=== PATIENT | female | born 1950 | race Caucasian/White ===

== ENCOUNTER 2016-11-15 21:53 | Observation (INO) | payer MEDICARE, OTHER ==
[~2016-11-15] VITALS: Ht 175.3 cm; Wt 78.6 kg
[~2016-11-15 21:53] MED LIST: OXYC1TAB24 PO
[2016-11-15 21:58] VITALS: BP 103/53; PULSE 67; RESP 18; O2SAT 94
--- NOTE | 2016-11-15 22:15 | ED.REPORT ---
HPI-General Illness Date of Service Nov 15, 2016 ED Provider: Junito Vaca MD Pt is a 66 y/o female presenting to the ED w/ her c/o back pain onset about 5 days ago. She believes her back pain is associated with recent painting. She also reports associated low-grade fever, chills, diarrhea x2 onset today. Pt denies any trauma to the back. Pt denies cough, dysuria, abdominal pain, vomiting, bowel or bladder incontinence, hematochezia, orthostatic lightheadedness, CP, SOB. She has sick contacts with her grandchild who has been having gastroenteritis-like symptoms. She notes that she has hypomagnesemia secondary to her gastric bypass and she has ran out of her Mg pills for the past couple days. 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) Scheduled PRN oxyCODONE-Acetaminophen 5-325 mg (oxyCODONE-Acetaminophen 5-325 mg) 1 Each Tablet 0.5-1 TAB PO Q6H PRN PRN For Pain General Time Seen by MD: 22:14 Chief Complaint Back pain Hx Obtained From: Patient Arrived By: Walk-in Sudden in Onset?: No Onset Occurred: 1 week ago Symptom Duration: Since onset Location: : Back Quality: Painful Severity: Current: Mild Severity: Maximum: Mild Similar Sx Previous: No Past Medical History Past Medical History Celiac 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 Hypothyroidism Hypomagnesemia secondary to her gastric bypass - controlled Past Surgical History Hysterectomy Distal gastric bypass Back surgery Smoking History Never Smoker Social History Alcohol Use: Denies alcohol use Drug Use: Denies drug use Ambulatory Status Independent Review of Systems Full Review of Systems Constitutional: Reports: Chills, Fever Respiratory: Denies: Non-productive cough, Shortness of breath Cardiovascular: Denies: Chest pain GI: Reports: Diarrhea, Denies: Abdominal pain, Bloody/tarry stool, Hematochezia, Nausea, Vomiting Female: Denies: Dysuria Musculoskeletal: Reports: Back pain Neurologic: Denies: Bladder dysfunction, Bowel dysfunction, Weakness Complete sys rev & neg: except as marked. Physical Exam Vital Signs Vital Signs Date Time Temp Pulse Resp B/P Pulse Ox O2 Delivery O2 Flow Rate FiO2 2/19/17 23:32 109 15 90/54 93 Room Air 11/15/16 21:58 36.4 67 18 103/53 94 Room Air Initial VS: Reviewed, Vital signs normal Head / Eyes: Atraumatic, Normocephalic, PERRL ENT: Mucous membranes moist, Conjunctiva normal, No scleral icterus Neck: Supple, Full range of motion Respiratory: Breath sounds normal, Clear to auscultation, No respiratory distress Extremities: Vascular intact, Neuro intact, No swelling, No tenderness Skin: Warm, Dry, No cyanosis Neurologic: Alert, Oriented, Nonfocal Psychiatric: Mood/affect normal, Behavior normal, Normal thought content General/Constitutional: Awake, Alert, No acute distress Cardiovascular: Heart rate NL, Heart sounds NL, No gallop, No murmurs, No rubs , Cap refill not delayed, Peripheral circulation NL Heart Rate / Rhythm: Positive: Irreg irregular rhythm Abdomen: Atraumatic, Soft, Non-tender, No guarding, No rebound, BS normoactive , No distention, No palpable mass Back: Atraumatic, Full range of motion, Painless range of motion Mild lumbar tenderness Interpretation & Diagnostics Lab Results Interpretation Result Diagram: 11/15/16223411/15/162234 Test 11/15/16 22:35 White Blood Count 7.3th/mm3 (3.8-10.1) Red Blood Count 4.11mil/mm3 (3.90-5.20) Hemoglobin 12.5g/dL (12.0-15.6) Hematocrit 40.0% (35.0-46.0) Mean Corpuscular Volume 97.3fL (81-100) Mean Corpuscular Hemoglobin 30.4pg (27.0-35.0) Mean Corpuscular Hemoglobin Concent 31.3% (32.0-37.0) Red Cell Distribution Width 14.1% (12.3-15.4) Platelet Count 146bil/L (150-400) Neutrophils (%) (Auto) 93.5% (40-74) Lymphocytes (%) (Auto) 2.6% (14-46) Monocytes (%) (Auto) 3.2% (4-12) Eosinophils (%) (Auto) 0.3% (0-5) Basophils (%) (Auto) 0.1% (0-3) D-Dimer 1.0mg/L (<0.50) Sodium Level 136mEq/L (134-144) Potassium Level 3.6mEq/L (3.5-5.2) Chloride Level 102mEq/L (97-108) Carbon Dioxide Level 19mmol/L (18-29) Blood Urea Nitrogen 26mg/dL (8-27) Creatinine 0.64mg/dL (0.57-1.00) Estimat Glomerular Filtration Rate 133mL/min (>59) Glucose Level 137mg/dL (60-99) Lactic Acid Level 1.0mmol/L (0.4-2.0) Calcium Level 8.8mg/dL (8.5-10.1) Magnesium Level 1.7mg/dL (1.6-2.6) Total Bilirubin 1.2mg/dL (0.0-1.2) Aspartate Amino Transf (AST/SGOT) 23U/L (0-50) Alanine Aminotransferase (ALT/SGPT) 17U/L (0-32) Alkaline Phosphatase 88U/L (25-165) Troponin T 0.010ug/L (0.0-0.011) Total Protein 6.2g/dL (6.4-8.4) Albumin 4.2g/dL (3.4-5.0) Thyroid Stimulating Hormone (TSH) 1.700uIU/mL (0.450-4.500) ECG Interpretation ECG Interpretation: Atrial fibrillation rate 102 Old anterior infarct Time: 22:26 Interpreted by: ED physician Normal ECG Interpretation: No acute ischemic changes X-Ray Chest Interpretation View: Portable, 1 view Interpretation / Wet Read by: Wet read ED physician NL X-Ray Chest Findings: No infiltrate, No acute disease Re-Eval/Medical Decision Time of Eval: 23:06 Re-Evaluation/Progress Note: Pt rechecked. She denies any history of a-fib or irregular heart rhythm. Discussed anticoagulant and rate control therapy. She notes that her BP normally runs at about 100 systolic. Discussed risks and benefits of Coumadin therapy. Counseled Regarding: Diagnosis, Lab results Discharge & Departure Shift Change Sign-Out Patient Care Transferred: Yes Discussed Complaint(s): Yes Laboratory Evaluation: Done, results pending Imaging Studies: Done, reviewed by me 66-year-old female complaining of a fever and some diarrhea and also noted incidentally to be in atrial fibrillation with rapid ventricular response. Cemistires and troponin are pending. Urinalysis is pending. At transfer care BP is 90 systolic, I ordered a bolus of saline and held previously ordered metoprolol. Primary Impression: Atrial fibrillation Atrial fibrillation type: unspecified Qualified Code: I48.91 - Unspecified atrial fibrillation Discharge Condition All VS Reviewed: Yes Condition: Stable Referrals: OTHER,PHYSICIAN (PCP) (Family) Care Transferred to: Ezekiel Cruz MD Care Transferred at: 23:35 Scribe Attestation Portions of this note were transcribed by Preet Tobar. I, Dr. Vaca personally performed the history, physical exam and medical decision-making; I reviewed and confirmed the accuracy of the information in the transcribed note. Signed by Ricardo Jj, 11/15/16 - 2248 Junito Vaca MD Nov 15, 2016 22:15 PREET TOBAR Nov 15, 2016 22:27
[2016-11-15] MEDS ORDERED: Ondansetron 2 mg/mL 2 mL Inj IV PRN (22:30)
[2016-11-15 22:51] LABS: BASOPHILS % (AUTO) 0.1 % (0-3); EOSINOPHILS % (AUTO) 0.3 % (0-5)
[2016-11-15 23:18] LABS: MONOCYTES % (AUTO) 3.2 % (4-12); Mean Corpuscular Hemoglobin 30.4 pg (27.0-35.0); Mean Corpuscular Volume 97.3 fL (81-100); NEUTROPHILS % (AUTO) 93.5 % (40-74); Platelet Count 146 bil/L (150-400)
[2016-11-15] MEDS ORDERED: 0.9% Sodium Chloride 1,000 ML IV ONE (23:20)
[2016-11-15 23:32] VITALS: BP 90/54; PULSE 109; RESP 15; O2SAT 93
[2016-11-15 23:32] LABS: Magnesium 1.7 mg/dL (1.6-2.6)
[2016-11-15 23:33] LABS: TROPONIN T 0.01 ug/L (0.0-0.011)
[2016-11-16] VITALS (11 sets, daily range): BP systolic 85–118; BP diastolic 44–64; PULSE 68–105; RESP 11–18; O2SAT 90–97
[2016-11-16 00:49] LABS: APPEARANCE,URINE SLIGHTLY CLOUDY (CLEAR,HAZY); COLOR,URINE AMBER (YELLOW); OCCULT BLOOD,URINE SMALL (NEGATIVE); PH,URINE 5.5 (5.0-8.0); UROBILINOGEN,URINE NORMAL (NORMAL)
[2016-11-16 00:50] LABS: ICTOTEST,URINE POSITIVE (Negative)
[2016-11-16] MEDS ORDERED: Alum-Mag Hydrox-Simeth 30 mL Suspension PO PRN (02:30)
[2016-11-16] MEDS ORDERED: Polyethylene Glycol (PEG) 17 Gm Powder PO PRN (02:30)
[2016-11-16] MEDS ORDERED: Ondansetron 2 mg/mL 2 mL Inj IVPUSH PRN (02:30)
--- NOTE | 2016-11-16 03:29 | PCM.HPMED ---
Subjective Date of Service Nov 16, 2016 Primary Provider: Admitting Physician: Sarah Wilson DO Primary Care Physician: Other,Physician Attending Physician: Sarah Wilson DO Admit Status: From the Emergency Department Chief Complaint: Diarrhea and back pain History of Present Illness: 66-year-old female with history of celiac disease presented to the ER with complaint of back pain, fever and diarrhea. Patient reports that yesterday she began to notice a pain in the middle of her back across her shoulder blades that was worsening. She denies any inciting injury. Patient also reports that she was experiencing fevers, chills, nausea and 2 episodes of diarrhea. She states that she spent some time with her grandson who is sick currently and wonders if she caught something from him. Patient denies any chest pain, chest pressure, diaphoresis, dizziness, shortness of breath. Patient reports that the only medications she takes her supplements, which are prescribed to her by her revenue specialist. Patient presented to the ER with complaint of back pain and diarrhea, and during evaluation was found to be in atrial fibrillation. Patient denies any history of irregular heartbeat, arrhythmia or atrial fibrillation. In the ER patient had a temperature 36.4, pulse rate 67, respiratory rate 18, blood pressure 103/53, pulse ox 94 on room air. Review of Systems: A comprehensive review of systems was conducted with the patient and found to be negative except as above in the History of Present Illness. 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) Home Medications Potassium Magnesium Calcium K2 Vitamin D "Hormone pills" PMH Celiac's disease Iron deficiency anemia requiring blood transfusion Broken toe Hypothyroidism Surgical History D&C 3 Hysterectomy Laminectomy L5 Gastric bypass Family History Mother-Alcoholism Father-Alcoholism Social History Hx Alcohol Use: Yes (one beer 3 times a week) Hx Substance Use: No Hx Tobacco Use: Yes (smoked 45 years ago) Hx Tobacco Use: No Smoking Status: Former Smoker Living Arrangement: with Family Exam Vital Signs Vital Sign - Last Date Time Temp Pulse Resp B/P Pulse Ox O2 Delivery O2 Flow Rate FiO2 11/16/16 01:18 83 11 118/44 95 Room Air 11/15/16 21:58 36.4 Intake and Output 11/15/16 11/15/16 11/16/16 Cumulative From/Thru 15:00 23:00 07:00 2/19/17 21:58 - 11/15/16 23:34 Intake Total 1000 ml 1000 ml Balance 1000 ml 1000 ml Intake IV Total 1000 ml 1000 ml Exam General: No acute distress, well-developed, well-nourished, appropriately interactive HEENT: Normocephalic, atraumatic. External ears without defect. Pupils equal, round, and reactive to light and accommodation. Moist conjunctivae. Oropharynx with moist mucosa. Neck: Supple with full range of motion.No lymphadenopathy Cardiovascular: Regular rate and rhythm with no murmurs, rubs, or gallops appreciated Pulmonary: Clear to auscultation bilaterally with no crackles, wheezes, or rhonchi. Normal respiratory effort with no use of accessory muscles. Abdomen: Bowel tones present. Soft, nontender, nondistended. Extremities: Nonpitting edema lower extremities bilaterally . Skin: Normal temperature, turgor, and texture; no rash, ulcers, or subcutaneous nodules appreciated. Psychiatric: Pressured speech, tangential thinking. Alert and oriented to person , place, and time. Lab and Diagnostics Result Diagram: 11/15/16223411/15/162234 X-Rays, CTs and MRIs Chest x-ray- official radiology report pending CT angiogram- night radiology report stating no pulmonary embolism or dissection , segmental atelectasis bases. Assessment & Plan 66-year-old female with history of celiac disease presented to the ER with complaint of back pain, fever and diarrhea and during evaluation was found to be in atrial fibrillation. New onset paroxysmal atrial fibrillation, present on admission -Currently in sinus rhythm -Pt denies any history of afib or cardiac history, and was asymptomatic when in afib -Pt converted to sinus rhythm without any intervention -CXR read as normal per ER physician, no formal radiology report available -CT angio performed, no pulmonary embolism or dissection. Segmental atelectasis in bases. -TSH, potassium, magnesium all within normal limits. Negative troponin. -[id number] score of 2 ( for age and gender) -Telemetry ordered -ECHO ordered for the AM -Considered diltiazem if pt converts back to afib -Daily labs -AM team to discuss anticoagulation with patient Acute diarrhea, present on admission, ongoing -Likely secondary to viral gastroenteritis -Pt is afebrile, without any leukocytosis, and hemodynamically stable -If diarrhea persists, we will consider stool PCR and fluids Chronic hypothyroidism -Pt reports she only takes supplements -TSH in ER 1.7 DVT:Heparin Code: Full code PCP: Dr Ching( revenue specialist) VTE Prophylaxis: Sub-Q Heparin (Unfractionated) Resuscitation Status: CPR: Attempt Resuscitation Attending Statement The patient was seen and examined together with house staff on 11/16/2016 and I agree with the history, exam and plan as outlined in the note above. Kayla Coyle DO Nov 16, 2016 03:04 Sarah Wilson DO Nov 16, 2016 04:39
[2016-11-16] MEDS ORDERED: LEVO50TA6 PO (03:52)
[2016-11-16] MEDS ORDERED: LIOT5TAB3 PO (03:52)
--- NOTE | 2016-11-16 05:08 | NUR ---
Admit Admitted pt from ED around 0300. Pt denies chest pain, sob, had an episode of feeling nauseated on the ED but has been resolved. VSS. Pt has been feeling generally weak and having fatigue and looks really dry, . Encouraged increased of oral fluid intake. Telemetry running on [place] per monitor ez. Will continue to monitor.
[2016-11-16 06:33] LABS: BASOPHILS % (AUTO) 0.2 % (0-3); EOSINOPHILS % (AUTO) 0 % (0-5); MONOCYTES % (AUTO) 3.2 % (4-12); Mean Corpuscular Hemoglobin 30.3 pg (27.0-35.0); Mean Corpuscular Volume 97.2 fL (81-100); NEUTROPHILS % (AUTO) 92.1 % (40-74); Platelet Count 126 bil/L (150-400)
[2016-11-16 06:54] LABS: Magnesium 1.7 mg/dL (1.6-2.6)
[2016-11-16] MEDS ORDERED: potassium (07:49)
[2016-11-16] MEDS ORDERED: POTA99TA25 PO (07:49)
[2016-11-16] MEDS ORDERED: MAGN500C4 PO (07:49)
[2016-11-16] MEDS ORDERED: oxyCODONE-Acetamin 5-325 mg Tablet PO PRN (08:00)
--- NOTE | 2016-11-16 08:20 | DRSVH ---
PROCEDURE: CT ANGIO CHEST PULMONARY EMBOLISM ([id number]) INDICATIONS: 66 year-old woman with atrial fibrillation and d dimer elevation. TECHNIQUE: After the administration of intravenous contrast, 2 mm thick sections acquired from the pulmonary api marlene to the posterior costophrenic angles. 3-dimensional maximum intensity projection (MIP) coronal a nd sagittal reformats were then acquired through the thorax. For radiation dose reduction, the follo wing was used: automated exposure control, adjustment of mA and/or kV according to patient size. COMPARISON: [facility], CR, XR CHEST 1VW (PORTABLE), 11/15/2016, 22:27. FINDINGS: Image quality: Excellent. Pulmonary arteries: Pulmonary arteries are normal in size, and demonstrate no intraluminal filling d efects to suggest central pulmonary embolism. Lungs and pleura: Bibasilar dependent atelectasis. Lungs are otherwise clear. No pleural effusions or pneumothorax. Central and peripheral airways are patent. Mediastinum: Heart size is normal, without pericardial effusion. No mediastinal or hilar adenopathy . Thoracic aorta is normal in caliber and enhancement. Esophagus is normal in caliber, without hiat al hernia. Bones and chest wall: No suspicious bony lesions. Ribs and thoracic spine appear intact throughout. Thyroid gland is normal. No axillary or supraclavicular adenopathy. Abdomen: Visualized upper abdominal solid organs appear normal in the early arterial phase of enhanc ement. IMPRESSION: No central pulmonary embolism. No significant discrepancy with the night worker radiology preliminary report. Dictated by: Adrienne Mast M.D. on 11/16/2016 at 8:15 Approved by: Adrienne Mast M.D. on 11/16/2016 at 8:18
[2016-11-16] MEDS ORDERED: Influenza (Adult) Vaccine 0.5 mL Syringe IM ONE (08:30)
--- NOTE | 2016-11-16 09:53 | DRSVH ---
PROCEDURE: X-RAY CHEST ONE VIEW, PORTABLE ([id number]) INDICATIONS: fever TECHNIQUE: One view of the chest was acquired. COMPARISON: None. FINDINGS: Surgical changes and devices: Epigastric surgical clips. Lungs and pleura: No pleural effusions or pneumothorax. Lungs are clear. Mediastinum: Mediastinal contours appear normal. Heart size is normal. Bones and chest wall: No suspicious bony lesions. Overlying soft tissues appear unremarkable. IMPRESSION: No acute cardiopulmonary disease. Dictated by: Vincent French Tim Interpreted: Rhonda Jones MD on 11/16/2016 at 9:52 Transcribed by: LOLA on 11/16/2016 at 9:52 Approved by: Rhonda Jones M.D. on 11/16/2016 at 16:27
[2016-11-16] MEDS: Heparin 5,000 Unit/mL Inj SUBQ SCH ×2 (10:46→16:37)
--- NOTE | 2016-11-16 11:19 | DRSVH ---
[facility] [address] [place] [address] Echocardiogram Report Name: ARVIND JOY te: 11/16/2016 Height: 69 in Hospital Exam Location: [facility] Weight: 173 lb Gender: Female BSA: 1.9 m2 : 1950 Age: 66 yrs BP: 101/56 mmHg Reason For Study: Atrial fibrillation Ordering Physician: Performed By: Nanda MCKENZIEIST [facility] Interpretation Summary The left ventricle is normal in size .The ejection fraction is estimated to be 45-50%. There is mild global hypokinesis of the left ventricle. The left atrium is severely dilated. There is trace mitral regurgitation. The right ventricular systolic pressure is estimated at 21 mmHg assuming a right atrial pressure of 3 mm Hg. Procedure: A two-dimensional transthoracic echocardiogram with color flow and Doppler was performed. The study quality was technically adequate. There is no prior echocardiogram noted for this patient. The patient was in atrial fibrillation with heart rates between 64-92 bpm during the exam. Left Ventricle: The left ventricle is normal in size. There is normal left ventricular wall thickness. The ejection fraction is estimated to be 45-50%. There is mild global hypokinesis of the left ventricle. Septal motion is consistent with conduction abnormality. Diastolic function could not be accurately assessed due to atrial fibrillation. Right Ventricle: The right ventricle is normal in size and function. Atria: The left atrium is severely dilated. Right atrial size is normal. The interatrial septum is intact with no evidence for an atrial septal defect. There is no Doppler evidence for an interatrial shunt. Mitral Valve: The mitral valve is normal in structure and function. There is trace mitral regurgitation. Aortic Valve: The aortic valve is normal in structure and function. No aortic regurgitation is present. Tricuspid Valve: The tricuspid valve is normal in structure and function. There is a trace or physiologic amount of tricuspid regurgitation. The right ventricular systolic pressure is estimated at 21 mmHg assuming a right atrial pressure of 3 mm Hg. Pulmonic Valve: The pulmonic valve is not well seen, but is grossly normal. There is a trace or physiologic amount of pulmonic regurgitation. Great Vessels: The aortic root is normal size. The ascending aorta could not be visualized. The aortic arch is normal in size. The IVC is of normal diameter and collapses greater than 50% with a sniff. This suggests a low right atrial pressure of 3 mm Hg. Pericardium/ Pleura There is no pericardial effusion. MMode/2D Measurements & Calculations LVIDd: 4.6 cm RA long axis LVOT diam: 2.0 cm LVIDs: 3.5 cm LA A2 area: 27.8 cm AoV Opening FS: 24.0 % LA A4 area: 21.5 cm RA area EPSS: 0.51 cm LA length (vol) Ao root diam IVSd: 1.2 cm : 16.3 cm LVPWd: 0.84 cm LA vol: 94.3 ml RA vol Aortic Jxn: 2.9 cm LA vol index : 45.1 ml Ao Arch Diam (Prox RA Trans): 2.7 cm : 23.2 mm2 IVC diam: 1.9 cm LV york. diameter/BSA LV sys. diameter/BSA RVD1 (basal) TAPSE: 2.3 cm (cm/m^2): 2.4 (cm/m^2): 1.8 Doppler Measurements & Calculations Ao V2 max: 125.7 cm/secMV E max volodymyr Med Peak E' Volodymyr TR max volodymyr Ao max P.3 mmHg : 98.4 cm/sec : 210.7 cm/sec Ao mean P.5 mmHg MV P1/2t E/E' med: 9.3 TR max PG LVOT Max Volodymyr : 51.2 msec Lat Peak E' Volodymyr : 17.8 mmHg : 75.5 cm/sec PA V2 max E/E' lat: 6.2 : 88.2 cm/sec JAYA(I,D): 1.9 cm E/e' average: 7.8 PA mean PG sev ratio: 0.60 PA Accel Time : 0.14 sec MV P1/2t max volodymyr Ao V2 mean LV V1 max PG PA V2 mean : 88.0 cm/sec : 60.4 cm/sec Ao V2 VTI LV V1 VTI: 13.8 cm MVA(P1/2t): 4.3 cm2 JAYA(V,D): 1.9 cm2 JAYA indexed to BSA (cm^2/m^2): 0.98 Electronically signed by: Dusty Saldaña on Reading Physician:11/16/2016 11:18 AM
--- NOTE | 2016-11-16 14:52 | NUR ---
Social Work Initial Assessment: SW met with patient at bedside to discuss discharge plan. Patient is a 66 year old female admitted on 11/16/16 under observation status of new onset afib. Patient payer as Medicare and [employer]. 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 Patient states PCP as Jeane Cedillo at [facility]. Patient states pharmacy of choice as [facility]. Patient has no previous HHC, SNF, or DME history. Patient states having AD on file at this time. Patient states being independent with needs and states that she drives independently. Patient states that [place], to assist with needs at home if support needed. No other anticipated discharge needs identified at this time. SW will continue to follow. PLAN: Home with via POV. No anticipated discharge needs at this time. SW will continue to follow. Lisa ROMO Addendum: 11/16/16 at 1458 by ANGELIQUE CORTES Amended: Links added.
[2016-11-16] MEDS: MeTOProlol XL 25 mg ER24 Tablet PO SCH (15:05)
--- NOTE | 2016-11-16 16:56 | NUR ---
HYPOtension Pt BP at 85/50, HR at 70. Vitals rechecked, BP 95/55, HR at 70. Pt reports recent VS are baseline. Dose of Metoprolol held. notified, called back and in room to speak with pt and assess.
--- NOTE | 2016-11-16 19:28 | NUR ---
TELEMETRY Pt converted to SR from AFIB around 1500. TELE: SR 70's.
--- NOTE | 2016-11-16 19:37 | NUR ---
Case Management: KAREN explained to patient at 1925, all questions answered. Signed original placed in chart, pt given a copy. "How Medicare Covers Self-Administered Drugs Given in Hospital Outpatient Settings" also given to patient. Lyssa Oconnell RN
[2016-11-17 00:38] VITALS: BP 91/56; PULSE 69; RESP 16; O2SAT 95
--- NOTE | 2016-11-17 03:21 | NUR ---
activity Pt was alert and oriented x4. No complaints of pain or discomfort. Cooperative with cares and medications. Resting well this evening. Will continue to observe.
[2016-11-17 05:24] VITALS: BP 99/62; PULSE 63; RESP 18; O2SAT 96
[2016-11-17] MEDS: MeTOProlol XL 25 mg ER24 Tablet PO SCH (08:30)
[2016-11-17 09:17] LABS: Unsaturated Iron Binding 230.6 ug/dL
[2016-11-17 09:36] VITALS: BP 100/65; PULSE 68; RESP 18; O2SAT 95
[2016-11-17] MEDS ORDERED: APIX5TAB PO (11:39)
--- NOTE | 2016-11-17 12:00 | NUR ---
Social Work Discharge: SW met with patient at bedside to discuss discharge plan. Order for discharge acknowledged. Patient states plan as home with who to assist with care needs at home. Patient states not wanting to discharge home on Eliquis at this time. SW advised MD who to consult with patient. No other identified discharge needs at this time. SW will continue to follow. PLAN: Home with via POV, pending clinical course Lisa ROMO
[2016-11-17] MEDS ORDERED: ASPI-973 PO (12:07)
--- NOTE | 2016-11-17 12:12 | PCM.DIMED ---
Discharge Instructions Date of Service Nov 17, 2016 Dates of Hospitalization Nov 16, 2016 at 02:03 Discharge Diagnosis Discharge Diagnosis new onset atrial fibrillation viral syndrome Medication Instructions Diet No restrictions Activity No restrictions Call your provider Shortness of breath Patient Instructions You were hospitalized with fever, diarrhea, back pain, all symptoms resolved, likely resulted from viral infection. You were also found to have irregular heart beat "atrial fibrillation". -As we discussed, you were recommended to take blood thinner to prevent stroke, Apixaban, however, you decided to continue aspirin for now after weighing risks and benefits. Please continue to consult with your doctor and Cardiology for further discussion about blood thinner. -Please note that you received agent to control your heart rate during hospitalization but discontinued due to low blood pressure. Follow-up plan Please follow up with your primary doctor Jeane Cedillo in 1-2weeks Follow-up with PCP in: 2 weeks Melisa Bird MD Nov 17, 2016 11:40
[2016-11-17 12:47] VITALS: PULSE 70
--- NOTE | 2016-11-17 14:37 | NUR ---
discharge went over discharge instructions and followup appointments which pt verbally acknowledged understanding. Removed patent intact IV. Pt left in wheelchair with friends to awaiting vehicle. No s/s of distress at time of dc
--- NOTE | 2016-11-18 16:16 | PCM.DC.MED ---
Discharge Summary Date of Service Nov 18, 2016 Dates of Hospitalization Date of Hospital Admission Nov 16, 2016 at 02:03 Date of Discharge: Nov 17, 2016 Providers: Admitting Physician: Sarah Wilson DO Primary Care Physician: Other,Physician Attending Physician: Sarah Wilson DO Diagnosis at Time of Discharge Diagnosis at Time of Discharge new onset atrial fibrillation viral syndrome Procedures XRay, CTs & MRIs PROCEDURE: CT ANGIO CHEST PULMONARY EMBOLISM ([id number]) INDICATIONS: 66 year-old woman with atrial fibrillation and d dimer elevation. TECHNIQUE: After the administration of intravenous contrast, 2 mm thick sections acquired from the pulmonary apices to the posterior costophrenic angles. 3-dimensional maximum intensity projection (MIP) coronal and sagittal reformats were then acquired through the thorax. For radiation dose reduction, the following was used: automated exposure control, adjustment of mA and/or kV according to patient size. COMPARISON: Merged With [facility], CR, XR CHEST 1VW (PORTABLE), 11/15/2016, 22: 27. FINDINGS: Image quality: Excellent. Pulmonary arteries: Pulmonary arteries are normal in size, and demonstrate no intraluminal filling defects to suggest central pulmonary embolism. Lungs and pleura: Bibasilar dependent atelectasis. Lungs are otherwise clear. No pleural effusions or pneumothorax. Central and peripheral airways are patent. Mediastinum: Heart size is normal, without pericardial effusion. No mediastinal or hilar adenopathy. Thoracic aorta is normal in caliber and enhancement. Esophagus is normal in caliber, without hiatal hernia. Bones and chest wall: No suspicious bony lesions. Ribs and thoracic spine appear intact throughout. Thyroid gland is normal. No axillary or supraclavicular adenopathy. Abdomen: Visualized upper abdominal solid organs appear normal in the early arterial phase of enhancement. IMPRESSION: No central pulmonary embolism. No significant discrepancy with the night worker radiology preliminary report. Dictated by: Adrienne Mast M.D. on 11/16/2016 at 8:15 Approved by: Adrienne Mast M.D. on 11/16/2016 at 8:18 PROCEDURE: X-RAY CHEST ONE VIEW, PORTABLE ([id number]) INDICATIONS: fever TECHNIQUE: One view of the chest was acquired. COMPARISON: None. FINDINGS: Surgical changes and devices: Epigastric surgical clips. Lungs and pleura: No pleural effusions or pneumothorax. Lungs are clear. Mediastinum: Mediastinal contours appear normal. Heart size is normal. Bones and chest wall: No suspicious bony lesions. Overlying soft tissues appear unremarkable. IMPRESSION: No acute cardiopulmonary disease. Dictated by: Vincent French RR Interpreted: Rhonda Jones MD on 11/16/2016 at 9:52 Transcribed by: LOLA on 11/16/2016 at 9:52 Approved by: Rhonda Jones M.D. on 11/16/2016 at 16:27 Brief History HPI obtained by Dr. Wilson on 11/16 66-year-old female with history of celiac disease presented to the ER with complaint of back pain, fever and diarrhea. Patient reports that yesterday she began to notice a pain in the middle of her back across her shoulder blades that was worsening. She denies any inciting injury. Patient also reports that she was experiencing fevers, chills, nausea and 2 episodes of diarrhea. She states that she spent some time with her grandson who is sick currently and wonders if she caught something from him. Patient denies any chest pain, chest pressure, diaphoresis, dizziness, shortness of breath. 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 Patient presented to the ER with complaint of back pain and diarrhea, and during evaluation was found to be in atrial fibrillation. Patient denies any history of irregular heartbeat, arrhythmia or atrial fibrillation. In the ER patient had a temperature 36.4, pulse rate 67, respiratory rate 18, blood pressure 103/53, pulse ox 94 on room air. Hospital Course 66-year-old female with history of celiac disease presented to the ER with complaint of back pain, fever and diarrhea and during evaluation was found to be in atrial fibrillation. New onset paroxysmal atrial fibrillation, present on admission, Pt denies any history of afib or cardiac history, and was asymptomatic when in afib, Pt converted to sinus rhythm without any intervention, CT angio performed, no pulmonary embolism or dissection. TSH, potassium, magnesium all within normal limits. Negative troponin. [id number] score of 2 ( for age and gender), pt was strongly recommended anicoagulation tx, however, after weighing risks and benefits, pt decided to continue to aspirin, have further discussion with cardiology later. Acute diarrhea, subjective fever, back pain, all of symptoms resolved, remained asymptomatic, Likely secondary to viral gastroenteritis. pt tolerated diet well , no abx given. Chronic hypothyroidism, on LT4, continued positive UCX, pt denied any symptoms, decided not to start abx Exam Vital Signs (Last) Date Time Temp Pulse Resp B/P Pulse Ox O2 Delivery O2 Flow Rate FiO2 11/17/16 12:47 70 11/17/16 09:36 36.6 18 100/65 95 Room Air Exam NAD, comfortably laying down on the bed no JVD, MMM, no LAD RRR, nl s1, s2 no mrg CTAB, no w,c S,ND,NT,normoactive BS+ warm, no edema, pulses 2/2 Test 11/15/16 22:35 11/16/16 00:32 11/16/16 06:15 11/17/16 06:15 D-Dimer 1.0mg/L (<0.50) Lactic Acid Level 1.0mmol/L (0.4-2.0) Troponin T 0.010ug/L (0.0-0.011) Thyroid Stimulating Hormone (TSH) 1.700uIU/mL (0.450-4.500) Urine Color Jeanna (YELLOW) Urine Appearance Slightly cloudy Urine pH 5.5 (5.0-8.0) Urine Specific Sawyer 1.025 (1.003-1.035) Urine Protein Negativemg/dL (NEG,TRACE) Urine Glucose (UA) Negativemg/dL (NEGATIVE) Urine Ketones Tracemg/dL (NEGATIVE) Urine Occult Blood Small (NEGATIVE) Urine Nitrite Positive (NEGATIVE) Urine Bilirubin Small (NEGATIVE) Urine Ictotest Positive (Negative) Urine Urobilinogen Normalmg/dL (NORMAL) Urine Leukocyte Esterase Trace (NEGATIVE) Urine RBC 0-2/hpf (0-2) Urine WBC 6-10/hpf (0-5) Urine Epithelial Cells Many/hpf (NONE-MOD) Urine Crystals None seen (NONE SEEN) Urine Bacteria Many/hpf (NONE-FEW) Urine Hyaline Casts None/lpf (NONE) Urine Granular Casts None seen (NONE SEEN) Urine Waxy Casts None seen (NONE SEEN) Urine Red Blood Cell Casts None seen (NONE SEEN) Urine White Blood Cell Casts None seen (NONE SEEN) Urine Mucus None seen (None Seen) Urine Trichomonas None seen (NONE SEEN) Urine Yeast None (NONE SEEN) Urine Culture Reflexed Indicated White Blood Count 5.4th/mm3 (3.8-10.1) Red Blood Count 3.63mil/mm3 (3.90-5.20) Hemoglobin 11.0g/dL (12.0-15.6) Hematocrit 35.3% (35.0-46.0) Mean Corpuscular Volume 97.2fL (81-100) Mean Corpuscular Hemoglobin 30.3pg (27.0-35.0) Mean Corpuscular Hemoglobin Concent 31.2% (32.0-37.0) Red Cell Distribution Width 14.2% (12.3-15.4) Platelet Count 126bil/L (150-400) Neutrophils (%) (Auto) 92.1% (40-74) Lymphocytes (%) (Auto) 4.3% (14-46) Monocytes (%) (Auto) 3.2% (4-12) Eosinophils (%) (Auto) 0% (0-5) Basophils (%) (Auto) 0.2% (0-3) Prothrombin Time 10.7sec (8.1-12.5) Prothromb Time International Ratio 1.00ratio Sodium Level 139mEq/L (134-144) Potassium Level 3.7mEq/L (3.5-5.2) Chloride Level 107mEq/L (97-108) Carbon Dioxide Level 21mmol/L (18-29) Blood Urea Nitrogen 17mg/dL (8-27) Creatinine 0.42mg/dL (0.57-1.00) Estimat Glomerular Filtration Rate 216mL/min (>59) Glucose Level 102mg/dL (60-99) Calcium Level 7.9mg/dL (8.5-10.1) Magnesium Level 1.7mg/dL (1.6-2.6) Total Bilirubin 1.0mg/dL (0.0-1.2) Aspartate Amino Transf (AST/SGOT) 22U/L (0-50) Alanine Aminotransferase (ALT/SGPT) 14U/L (0-32) Alkaline Phosphatase 70U/L (25-165) Total Protein 4.9g/dL (6.4-8.4) Albumin 3.5g/dL (3.4-5.0) Total Iron Binding Capacity 255ug/dL (250-450) Percent Iron Saturation 9%sat (15-50) Unsaturated Iron Binding 230.6ug/dL Ferritin 163ng/mL (13-150) Triglycerides Level 70mg/dL (0-149) Cholesterol Level 98mg/dL (100-199) LDL Cholesterol, Calculated 39.000mg/dL (0-99) VLDL Cholesterol 14.000mg/dL HDL Cholesterol 45mg/dL (>39) Cholesterol/HDL Ratio 2.18 (0.0-4.4) Discharge Medications Discharge Medications Aspirin (Aspirin) 81 Mg Tablet 81 MG PO DAILY Prescribed by: MELISA BERRY MD Levothyroxine (Levothyroxine) 50 Mcg Tablet 50 MCG PO DAILY (Reported) Liothyronine Sodium (Liothyronine Sodium) 5 Mcg Tablet 5 MCG PO DAILY (Reported ) Magnesium Oxide (Magnesium) 500 Mg Capsule Unknown Dose PO TID (Reported) As needed oxyCODONE-Acetaminophen 5-325 mg (oxyCODONE-Acetaminophen 5-325 mg) 1 Each Tablet 0.5-1 TAB PO Q6H PRN PRN For Pain Prescribed by: THAIS HERRERA MD Miscellaneous Medications ([potassium]) Unknown Dose (Reported) Additional med instructions Followup Plan Disposition: home Follow-up plan Please follow up with your primary doctor Jeane Cedillo in 1-2weeks Discharge Diet: No restrictions Discharge Activity: No restrictions Patient Instructions You were hospitalized with fever, diarrhea, back pain, all symptoms resolved, likely resulted from viral infection. You were also found to have irregular heart beat "atrial fibrillation". -As we discussed, you were recommended to take blood thinner to prevent stroke, Apixaban, however, you decided to continue aspirin for now after weighing risks and benefits. Please continue to consult with your doctor and Cardiology for further discussion about blood thinner. -Please note that you received agent to control your heart rate during hospitalization but discontinued due to low blood pressure. Follow-up with PCP in: 2 weeks Time spent 65min Melisa Berry MD Nov 18, 2016 16:16
[2016-11-19 18:06] LABS: Transferrin 209 mg/dL (.)
== END 2016-11-17 14:40 | disposition home or self-care (01) ==
LOC: SED 21:53 → MPC 11-16 02:03 → INTOOBSV 11-16 02:03 → MPC 11-16 02:55
PROVIDERS: ADMIT Internal Medicine; ATTEND Internal Medicine
DX: I48.0 Paroxysmal atrial fibrillation (principal); B34.9 Viral infection, unspecified; R19.7 Diarrhea, unspecified; E03.9 Hypothyroidism, unspecified; M54.5 Low back pain; E83.42 Hypomagnesemia; R79.89 Other specified abnormal findings of blood chemistry; K90.0 Celiac disease; Z87.891 Personal history of nicotine dependence; Z91.018 Allergy to other foods; Z98.84 Bariatric surgery status; Z23 Encounter for immunization
CPT/HCPCS: 36415; 71010; 71275; 80053; 80061; 81000; 82728; 83540; 83550; 83605; 83735; 84443; 84484; 85025; 85379; 85610; 87086; 87088; 87186; 90471; 93005; 96361; 96374; 99285; C8929; G0378; J1644; J2405; J7030; Q2039; Q9967